=== PATIENT | female | born 1970 | race Caucasian/White ===

== ENCOUNTER → 2017-07-17 | Outpatient (CLI) | payer MEDICARE, OTHER ==
--- NOTE | 2017-07-18 08:21 | CT ---
EXAMINATION TYPE: CT angio head neck DATE OF EXAM: 07/17/2017 HISTORY: Vision changes, left eye blindness. History of multiple sclerosis. COMPARISON: NONE CT DLP: 1386.8 mGycm. Automated Exposure Control for Dose Reduction was Utilized. TECHNIQUE: CTA scan of the head and neck are performed without and with IV Contrast, patient injecte d with 65 mL of Isovue 370, axial images are obtained, coronal and sagittal reformatted images are re viewed. Three-D reconstructed images are created on an independent workstation and reviewed. FINDINGS: Carotid/Vascular Structures: No significant plaque in aortic arch. There is normal three-vessel origi n from aorta. Bilateral subclavian artery show no significant plaque or stenosis. Right common carotid artery shows normal origin from right brachiocephalic artery. There is no signif icant plaque or stenosis in right common or internal carotid arteries including at level of carotid b ulb. There is patent external carotid artery without significant plaque or stenosis. There is mild ca lcified plaque supraclinoid segment. There is mild eccentric plaque at left carotid bulb extending into proximal internal carotid artery w ithout significant stenosis. There is mild calcified plaque supraclinoid segment distal left internal carotid artery. Remainder of left common and internal carotid artery shows no significant plaque or stenosis. There is patent left external carotid artery without significant plaque or stenosis. There is codominant vertebral basilar system. Vertebral arteries are patent to basilar junction. Ther e are hypoplastic posterior communicating arteries bilaterally. There is no significant stenosis or a neurysmal change. Images of the anterior circulation show no significant focal stenosis or aneurysmal change. Patent an terior communicating artery is identified on the raw data. Other: Noncontrast CT shows no acute intracranial hemorrhage or midline shift. Ventricles and sulci a re within normal limits in size. Suspicious areas of low-attenuation in the deep and periventricular white matter are noted, for reference 1.1 cm right frontal lesion axial image 30. The globes are inta ct and the visualized sinuses are clear. There is mild to moderate spurring and disc space narrowing C5-C6 and C6-C7 levels. There are scatter ed thyroid nodules including greater than 1 cm right-sided thyroid nodule axial image 32. IMPRESSION: 1. No aneurysmal change at the level of the [place]. 2. No significant focal stenosis or aneurysmal change at the level of the [place]. 3. Hypodense areas within brain parenchyma likely reflect sequela of known demyelinating disease. 4. Thyroid nodularity, advise thyroid ultrasound follow-up to further evaluate and characterize if th is is not known finding.
== END | disposition home or self-care (01) ==
LOC: RADCTMAIN 16:00
PROVIDERS: ATTEND Psychiatry & Neurology Neurology
DX: E04.1 Nontoxic single thyroid nodule (principal); G93.89 Other specified disorders of brain; Z88.8 Allergy status to other drugs, medicaments and biological substances
CPT/HCPCS: 82565; 84520; 70496; 70498; 36415; Q9967

== ENCOUNTER → 2020-07-06 | Outpatient (CLI) | payer MEDICARE, OTHER ==
[2020-07-06 22:10] LABS: Basophils # (A) 0.05 X 10*3/uL (0.00-0.10); Basophils % (A) 0.6 %; Eosinophils # (A) 0.36 X 10*3/uL (0.04-0.35); Eosinophils % (A) 4.6 %; HCT 42.4 % (37.2-46.3); HGB 13.8 g/dL (12.0-15.0); Lymphocytes # (A) 1.43 X 10*3/uL (0.90-5.00); Lymphocytes % (A) 18.2 %; MCH 31.9 pg (27.0-32.0); MCHC 32.5 g/dL (32.0-37.0); MCV 98.1 fL (80.0-97.0); Monocytes # (A) 0.65 X 10*3/uL (0.20-1.00); Monocytes % (A) 8.3 %; Neutrophils % (A) 67.5 %; Platelet Count 197 X 10*3/uL (140-440); RBC 4.32 X 10*6/uL (4.10-5.20); RDW 11.9 % (11.5-14.5); WBC 7.85 X 10*3/uL (4.50-10.00)
[2020-07-07] LABS: Hemoglobin A1C 6.6 % (4.0-6.0)
[2020-07-07 05:30] LABS: African American GFR (CKD) 76.1 (60.0-200.0); Albumin 4.1 g/dL (3.80-4.90); Albumin/Globulin Ratio 1.58 (1.60-3.17); Anion Gap 11.3 mmol/L (4.00-12.00); Calcium 9.6 mg/dL (8.7-10.3); Carbon Dioxide 22.7 mmol/L (21.6-31.8); Globulin 2.6 g/dL (1.6-3.3); Non-African American GFR(CKD) 65.6 (60.0-200.0); Potassium 4.4 mmol/L (3.5-5.5); Total Bilirubin 0.5 mg/dL (0.2-1.2); Total Protein 6.7 g/dL (6.2-8.2)
[2020-07-07 05:38] LABS: T4, Free (Free Thyroxine) 1.1 ng/dL (0.80-1.80)
[2020-07-07 05:53] LABS: Varicella IgM Antibody 0.17 INDEX (<=0.90)
[2020-07-07 06:48] LABS: Hepatitis B Core IgM Non-Reactive (Non-Reactive); Hepatitis B Surface Antigen Non-Reactive (Non-Reactive)
[2020-07-07 06:51] LABS: Folate, Serum 15.7 ng/mL
== END | disposition home or self-care (01) ==
LOC: LABWHC1 12:01
PROVIDERS: ATTEND Psychiatry & Neurology Pain Medicine
DX: G35 Multiple sclerosis (principal)
CPT/HCPCS: 36415; 80053; 82306; 82607; 82746; 83036; 84207; 84425; 84439; 84443; 84481; 84591; 85025; 86704; 86705; 86706; 86787; 87340